=== PATIENT | female | born 1935 | race Caucasian/White ===

== ENCOUNTER 2017-10-22 10:44 | Outpatient (CLI) | payer MEDICARE ==
[2017-10-22 12:13] LABS: Hemoglobin 14.4 g/dL (12.0-16.0); Mean Corpuscular HGB CONC 31.7 g/dL (32.0-36.0); Mean Corpuscular Hemoglobin 30.6 pg (27.0-31.0); Mean Corpuscular Volume 96.6 fl (81.0-99.0); Mean Platelet Volume 7.9 fL (7.4-10.4); Platelet Count 274 thou/uL (130-400); RBC Distribution Width 12.2 % (11.5-14.5); Red Blood Cell (RBC) Count 4.72 mill/uL (4.20-5.40); White Blood Cell (WBC) Count 9.9 thou/uL (4.8-10.8)
[2017-10-22 12:39] LABS: Anion Gap 12 mmol/L (10-20); BUN (Urea Nitrogen) 12 mg/dL (9.8-20.1); Calc. Creatinine Clearance 0 mL/min (70-130); Carbon Dioxide 26 mmol/L (23-31); Chloride 103 mmol/L (98-107); Estimated GFR-MDRD 83; Glucose 82 mg/dL (83-110); Potassium 4.2 mmol/L (3.5-5.1); Sodium 137 mmol/L (136-145)
--- NOTE | 2017-10-22 17:12 | EKG ---
Test Reason : Blood Pressure : / mmHG Vent. Rate : 070 BPM Atrial Rate : 070 BPM P-R Int : 168 ms QRS Dur : 112 ms QT Int : 454 ms P-R-T Axes : 069 -01 056 degrees QTc Int : 490 ms Normal sinus rhythm Possible Anteroseptal infarct , age undetermined First degree AV block Abnormal ECG No previous ECGs available Confirmed by DR. Jesus DELGADO ([id number]) on 10/22/2017 5:11:32 PM Referred By: AYESHA Confirmed By:DR. Jesus DELGADO
== END 2017-10-22 10:45 | disposition home or self-care (01) ==
LOC: LABBT 10:44
PROVIDERS: ATTEND Neurological Surgery
DX: Z01.818 Encounter for other preprocedural examination (principal); M43.16 Spondylolisthesis, lumbar region
CPT/HCPCS: 80048; 85027; 93005; 93010

== ENCOUNTER 2017-10-22 11:15 | Inpatient (IN) | payer MEDICARE ==
[2017-10-22 11:04] VITALS: BMI 20.5
[2017-10-29] MEDS ORDERED: CEFAZOLIN/Water 2 GM/20 ML SYRINGE ONE (07:28)
[2017-10-29] MEDS ORDERED: Sodium Chloride 0.9% 10 ML ONE (09:05)
[2017-10-29] MEDS ORDERED: Fentanyl 250 MCG/5 ML VIAL ONE (09:53)
--- NOTE | 2017-10-29 11:13 | OP ---
DATE OF PROCEDURE: 10/29/2017 SURGEON: Hema Garcia M.D. CHINCHILLA MACHINE OPERATOR: Helena Carlson PA-C PROCEDURE: L4-5 right laminectomy and discectomy, posterolateral arthrodesis, pedicle screw instrume ntation, demineralized bone matrix, L4-5. PROCEDURE IN DETAIL: The patient was brought to the operating room and intubated. She was rolled in the prone position on gel-filled chest rolls. Incision made exposing L4 and L5 bilaterally and our level was confirmed by x-ray. We performed complete L5 and inferior L4 laminectomy and then explored the right L4-5 region and removed some disk material. A complete decompression of the right L4-5 la teral recess was achieved. Next, pedicle screws were placed at right L4, right L5 using lateral fluo roscopic guidance and positioning was confirmed with x-ray. Pradip was secured between the screws, conn ected by nuts which were final tightened. The wound was then extensively irrigated, immaculate hemos tasis was secured. A combination of demineralized bone matrix, local morselized autograft was laid o tea the laminar and posterolateral surfaces for the purpose of arthrodesis. Vancomycin powder was ap plied and the wound was closed in anatomic layers.
[2017-10-29] MEDS ORDERED: diphenhydrAMINE 50 MG/ML VIAL IVP PRN (13:11)
[2017-10-29] MEDS ORDERED: Promethazine HCl 25 MG/ML VIAL IM PRN (13:11)
[2017-10-29] MEDS ORDERED: Mag-Al 1200 mg/1200 mg/30 ML UDCUP PO PRN (13:11)
[2017-10-29] MEDS ORDERED: Promethazine HCl 12.5 MG SUPP PR PRN (13:11)
[2017-10-29] MEDS ORDERED: diphenhydrAMINE 25 MG CAP PO PRN (13:11)
[2017-10-29] MEDS ORDERED: HYDROcodone/Acetaminophen 7.5/325 mg Tablet PO PRN ×2 (13:11)
[2017-10-29] MEDS ORDERED: Promethazine 25 MG TAB PO PRN (13:11)
[2017-10-29] MEDS ORDERED: tiZANidine HCl 4 MG TAB PO PRN (13:11)
[2017-10-29] MEDS ORDERED: Milk Of Magnesia 30 ML UDCUP PO PRN (13:11)
[2017-10-29] MEDS ORDERED: Morphine 2 MG/ML SYRINGE SLOW IVP PRN ×2 (13:12→13:16)
[2017-10-29] MEDS ORDERED: Ondansetron HCl/PF 4 MG/2 ML Vial IM PRN (13:13)
[2017-10-29] MEDS: Sodium Chloride 0.9% 1,000 ML IV SCH (13:39)
--- NOTE | 2017-10-29 14:37 | PDOC.PN ---
- Subjective Encounter Start Date: 10/29/17 Encounter Start Time: 14:36 -: old records requested/rev pt had L4-L5 lumbar laminectomy and microdissectomy, currently doing well, no chest pain, no pain, no dyspnea - Objective MAR Reviewed: Yes Vital Signs & Weight: Vital Signs (12 hours) Temp Pulse Resp BP Pulse Ox 10/29/17 13:00 97.5 F L 77 20 130/60 95 Weight Weight 120 lb Phys Exam - Physical Examination Constitutional: NAD HEENT: PERRLA, moist MMs, sclera anicteric Neck: no JVD, supple Respiratory: no wheezing, no rales, no rhonchi Cardiovascular: RRR, no significant murmur, no rub Gastrointestinal: soft, non-tender, no distention, positive bowel sounds Musculoskeletal: no edema, pulses present Neurological: non-focal, normal sensation Lymphatic: no nodes Psychiatric: normal affect, A&O x 3 Skin: no rash, normal turgor Dx/Plan (1) S/P lumbar laminectomy Code(s): Z98.890 - OTHER SPECIFIED POSTPROCEDURAL STATES Status: Acute (2) Hypertension Code(s): I10 - ESSENTIAL (PRIMARY) HYPERTENSION Status: Chronic (3) Diabetes type 2, controlled Code(s): E11.9 - TYPE 2 DIABETES MELLITUS WITHOUT COMPLICATIONS Status: Chronic (4) Dyslipidemia Code(s): E78.5 - HYPERLIPIDEMIA, UNSPECIFIED Status: Chronic (5) Paroxysmal atrial fibrillation Code(s): I48.0 - PAROXYSMAL ATRIAL FIBRILLATION Status: Chronic (6) Anxiety and depression Code(s): F41.8 - OTHER SPECIFIED ANXIETY DISORDERS Status: Chronic - Plan cont current plan of care, PT/OT, DVT proph w/SCDs * resume home medication * hold antiplatelet for now due to back surgery * continue PT * pain control * medication reviewed as below * symptomatic treatment. Review of Systems - Review of Systems Constitutional: negative: fever, chills, sweats, weakness, malaise, other ENT: negative: Ear Pain, Ear Discharge, Nose Pain, Nose Discharge, Nose Congestion, Mouth Pain, Mouth Swelling, Throat Pain, Throat Swelling, Other Respiratory: negative: Cough, Dry, Shortness of Breath, Hemoptysis, SOB with Excertion, Pleuritic Pain, Sputum, Wheezing Cardiovascular: negative: chest pain, palpitations, orthopnea, paroxysmal nocturnal dyspnea, edema, light headedness, other Gastrointestinal: negative: Nausea, Vomiting, Abdominal Pain, Diarrhea, Constipation, Melena, Hematochezia, Other Genitourinary: negative: Dysuria, Frequency, Incontinence, Hematuria, Retention , Other Musculoskeletal: negative: Neck Pain, Shoulder Pain, Arm Pain, Back Pain, Hand Pain, Leg Pain, Foot Pain, Other Skin: negative: Rash, Lesions, Ovidio, Bruising, Other - Medications/Allergies Allergies/Adverse Reactions: Allergies Allergy/AdvReac Type Severity Reaction Status Date / Time No Known Allergies Allergy Verified 10/22/17 11:05 Medications: Current Medications Hydrocodone Bitart/Acetaminophen ([place] 7.5/325) 1 tab PO Q4H PRN PRN Reason: Pain (1-3) Hydrocodone Bitart/Acetaminophen ([place] 7.5/325) 2 tab PO Q4H PRN PRN Reason: PAIN (4-6) Al Hydroxide/Mg Hydroxide (Maalox) 30 ml PO Q4H PRN PRN Reason: Heartburn or Indigestion Cefazolin Sodium (Ancef) 2 gm SLOW IVP Q8H [facility] Stop: 10/29/17 23:01 Diphenhydramine HCl (Benadryl) 25 mg PO Q6H PRN PRN Reason: Itching Diphenhydramine HCl (Benadryl) 25 mg IVP Q6H PRN PRN Reason: Itching Sodium Chloride (Normal Saline 0.9%) 1,000 mls @ 75 mls/hr IV .[id number] [facility] Last Admin: 10/29/17 13:39 Dose: Not Given Ketorolac Tromethamine (Toradol) 15 mg IVP Q6HR [facility] Stop: 10/31/17 12:01 Magnesium Hydroxide (Milk Of Magnesium) 30 ml PO Q12H PRN PRN Reason: Constipation Morphine Sulfate (Morphine) 4 mg SLOW IVP Q1H PRN PRN Reason: Severe Breakthrough Pain Morphine Sulfate (Morphine) 2 mg SLOW IVP Q1H PRN PRN Reason: Moderate Breakthrough Pain Last Admin: 10/29/17 13:38 Dose: 2 mg Ondansetron HCl (Zofran) 4 mg IM Q6H PRN PRN Reason: Nausea/Vomiting Promethazine HCl (Phenergan) 12.5 mg IM Q4H PRN PRN Reason: Nausea/Vomiting Promethazine HCl (Phenergan) 12.5 mg PO Q4H PRN PRN Reason: Nausea/Vomiting Promethazine HCl (Phenergan Suppository) 12.5 mg [place] Q4H PRN PRN Reason: Nausea/Vomiting Sodium Chloride (Flush - Normal Saline) 10 ml IVF Q12HR [facility]ONAH Sodium Chloride (Flush - Normal Saline) 10 ml IVF PRN PRN PRN Reason: Saline Flush Tizanidine HCl (Zanaflex) 4 mg PO Q6H PRN PRN Reason: MUSCLE SPASM History of Present Illnes - History of Present Illness Reason for Visit: admitted for lumbar laminectomy History of Present Illness: s/p surgery this morning, no weakness, no pain, doing well, no porblem so far - Past Medical History Cardiac: AFIB, HTN, Hyperlipidemia Gastrointestinal: Diverticulosis Psych: Anxiety, Depression Musculoskeletal: Chronic low back pain - Past Surgical History Past Surgical History: Cataract Removal (laminectomy-lumbar) - Past Family History Family History: None - Past Social History Smoke: No Alcohol: None Drugs: None Lives: With Family Domestic Violence: Negative
[2017-10-29] MEDS ORDERED: Dextrose 5% in Water 1,000 ML IV PRN (14:42)
[2017-10-29] MEDS ORDERED: HumaLOG 300 UNITS/3 ML VIAL SC PRN ×2 (14:42)
[2017-10-29] MEDS ORDERED: Dextrose 50% Abboject 50 ML SYRINGE SLOW IVP PRN (14:42)
[2017-10-29] MEDS ORDERED: ALPRAZolam 0.25 MG TAB PO PRN (14:42)
[2017-10-29] MEDS ORDERED: Eucerin (Mineral Oil/Petrolatum,White) 30 gm Jar TOP PRN (14:46)
[2017-10-29] MEDS ORDERED: hydrALAZINE 20 MG/ML VIAL SLOW IVP PRN (14:46)
[2017-10-29] MEDS ORDERED: Chloraseptic Spray 180 ml Bottle PO PRN (14:46)
[2017-10-29] MEDS ORDERED: Diabetic Tussin 200 MG/10 ML UDCUP PO PRN (14:46)
[2017-10-29] MEDS ORDERED: Senokot 8.6 MG TAB PO PRN (14:46)
[2017-10-29] MEDS ORDERED: Acetaminophen 325 MG TAB PO PRN (14:46)
[2017-10-29] MEDS ORDERED: Zolpidem Tartrate 5 MG TAB PO PRN (14:46)
[2017-10-29] MEDS ORDERED: CEFAZOLIN/Water 2 GM/20 ML SYRINGE SLOW IVP SCH (15:00)
[2017-10-29] MEDS ORDERED: Ondansetron HCl/PF 4 MG/2 ML Vial ONE (17:21)
[2017-10-29] MEDS ORDERED: Glycopyrrolate 0.2 MG/ML 5 ML SYRINGE ONE (17:21)
[2017-10-29] MEDS ORDERED: Ketorolac Tromethamine 30 MG/ML VIAL ONE (17:21)
[2017-10-29] MEDS ORDERED: PHENYLEPHRINE-NS 100 MCG/ML 10 ML SYRINGE ONE (17:21)
[2017-10-29] MEDS ORDERED: Dexamethasone 20 MG/5 ML VIAL ONE (17:21)
[2017-10-29] MEDS ORDERED: ePHEDrine/0.9% NaCl/PF SYRINGE 50 mg/10 ml ONE (17:21)
[2017-10-29] MEDS ORDERED: Lidocaine 1% PF 5 ML VIAL ONE (17:21)
[2017-10-29] MEDS ORDERED: PROPOFOL 200 MG/20 ML VIAL ONE (17:21)
[2017-10-29] MEDS: Ketorolac Tromethamine 30 MG/ML VIAL IVP SCH (18:30)
[2017-10-29] MEDS: CEFAZOLIN/Water 2 GM/20 ML SYRINGE SLOW IVP SCH (20:21)
[2017-10-29] MEDS ORDERED: Ezetimibe 10 MG TAB PO SCH (21:00)
[2017-10-29] MEDS ORDERED: Lisinopril 5 MG TAB PO SCH (21:00)
[2017-10-29] MEDS: Famotidine 20 MG TAB PO SCH (21:45)
[2017-10-29] MEDS: metFORMIN 500 MG TAB PO SCH (21:45)
[2017-10-29] MEDS: Flecainide 50 MG TAB PO SCH (21:45)
[2017-10-29] MEDS: Metoprolol Tartrate 50 MG TAB PO SCH (21:47)
[2017-10-30] MEDS: Ketorolac Tromethamine 30 MG/ML VIAL IVP SCH ×3 (00:39→12:00)
[2017-10-30] MEDS: CEFAZOLIN/Water 2 GM/20 ML SYRINGE SLOW IVP SCH (02:50)
[2017-10-30] MEDS: Sodium Chloride 0.9% 1,000 ML IV SCH ×2 (02:51→12:00)
--- NOTE | 2017-10-30 10:25 | DIS ---
DATE OF ADMISSION: 10/29/2017 DATE OF DISCHARGE: 10/30/2017 PRIMARY CARE PHYSICIAN: No Marquez M.D. DISCHARGE DISPOSITION: L4-L5 decompression and fusion. SECONDARY DISCHARGE DIAGNOSES: Anxiety, depression, diabetes type 2, dyslipidemia, hypertension, and paroxysmal atrial fibrillation. PRIMARY PROCEDURE/OPERATION: Lumbar laminectomy. RADIOLOGICAL INVESTIGATION: None. SIGNIFICANT LABORATORY DATA: Accu-Chek 157, 146 105. DISCHARGE MEDICATIONS: Zanaflex 4 mg q.6 hourly p.r.n., [place] 10 one 1-2 tablets q.6 hourly p.r.n., Keflex 500 mg q.6 hourly for 10 days, biotin 2500 mcg p.o. daily, Align 4 mg p.o. daily, Xanax 0.25 m g as per home dosage, Lopressor 75 mg p.o. b.i.d., metformin 500 mg p.o. b.i.d., lisinopril 5 mg p.o. daily, flecainide 100 mg p.o. b.i.d., Zetia 10 mg p.o. daily, vitamin D3 1000 unit p.o. daily. CONTRAINDICATIONS: The patient is currently not on aspirin because of back surgery, but that medicat ion can be started when neurosurgeon okay. CODE STATUS: FULL CODE. INPATIENT PROPRIETARY TRADER: Dr. Garcia with primary [facility] team was consulted for medical comanagement. TEST RESULTS PENDING ON DISCHARGE: None. ALLERGIES: No known drug allergy. DISCHARGE PLAN: Post hospital, patient will follow up with Dr. Alma Sarabia as instructed as well as primary care physician, Dr. Garcia. HOSPITAL COURSE: An 82-year-old female who was electively admitted for lumbar laminectomy by Dr. Rodney castro. The patient underwent L4-L5 right laminectomy and vasectomy. Postoperatively, Sound Team was consulted for medical comanagement. Patient's medical problem remains stable. We resumed all her h ome medication while in hospital as well as on discharge. Patient was not on aspirin because of back surgery, but that medication will be started when primary team is okay. The patient is given prescr iption for Keflex, [place] and Zanaflex by primary team. Overall, this patient is medically stable for discharge today. [facility]. PHYSICAL EXAMINATION: VITAL SIGNS: Currently, temperature 98.2, pulse 75, respiratory rate 16, saturation 100% on room air , blood pressure 128/60. Weight 120 pounds. GENERAL: The patient is currently alert, awake, no acute distress. HEAD: Normocephalic, atraumatic. EYES: Pupils round and reactive to light. Extraocular muscle intact. ENT: Oropharynx within normal limits. Moist mucous membranes, no oral lesion, no pharyngeal erythem a, no exudate. NECK: Supple, no JVD, no thyromegaly, no carotid bruit. No jugular venous distention. LUNGS: Clear to auscultation without any rhonchi or rales. CARDIAC: S1 and S2 regular without any murmur. ABDOMEN: Soft and benign without any tenderness. EXTREMITIES: No edema. NEUROLOGIC: Nonfocal examination. Overall, this patient is medically stable for discharge today. All review of system reviewed with he r negative and we will sign off today.
[2017-10-30] MEDS: Famotidine 20 MG TAB PO SCH (10:47)
[2017-10-30] MEDS: metFORMIN 500 MG TAB PO SCH (10:47)
[2017-10-30] MEDS: Flecainide 50 MG TAB PO SCH (11:02)
[2017-10-30] MEDS: Metoprolol Tartrate 50 MG TAB PO SCH (11:05)
--- NOTE | 2017-10-30 12:03 | PDOC.PN ---
- Subjective Encounter Start Date: 10/30/17 Encounter Start Time: 10:00 Patient seen and examined. No new complaints. No overnight events - Objective Resuscitation Status: Resuscitation Status FULL:Full Resuscitation MAR Reviewed: Yes Vital Signs & Weight: Vital Signs (12 hours) Temp Pulse Resp BP Pulse Ox 10/30/17 08:00 98.2 F 75 16 10/30/17 05:34 98.2 F 75 16 128/60 10/30/17 00:22 97.7 F 75 16 133/75 94 L Weight Weight 120 lb I&O: 10/29/17 10/30/17 10/31/17 06:59 06:59 06:59 Intake Total 1450 Balance 1450 Additional Labs: Accuchecks 10/30/17 10/29/17 10/29/17 04:16 21:30 16:40 POC Glucose 105 146 H 157 H Phys Exam - Physical Examination Constitutional: NAD HEENT: PERRLA, moist MMs, sclera anicteric Neck: no JVD, supple Respiratory: no wheezing, no rales, no rhonchi Cardiovascular: RRR, no significant murmur, no rub Gastrointestinal: soft, non-tender, no distention, positive bowel sounds Musculoskeletal: no edema, pulses present Neurological: non-focal, normal sensation, moves all 4 limbs Psychiatric: normal affect, A&O x 3 Skin: no rash, normal turgor Dx/Plan (1) S/P lumbar laminectomy Code(s): Z98.890 - OTHER SPECIFIED POSTPROCEDURAL STATES Status: Acute (2) Hypertension Code(s): I10 - ESSENTIAL (PRIMARY) HYPERTENSION Status: Chronic (3) Diabetes type 2, controlled Code(s): E11.9 - TYPE 2 DIABETES MELLITUS WITHOUT COMPLICATIONS Status: Chronic (4) Dyslipidemia Code(s): E78.5 - HYPERLIPIDEMIA, UNSPECIFIED Status: Chronic (5) Paroxysmal atrial fibrillation Code(s): I48.0 - PAROXYSMAL ATRIAL FIBRILLATION Status: Chronic (6) Anxiety and depression Code(s): F41.8 - OTHER SPECIFIED ANXIETY DISORDERS Status: Chronic - Plan cont current plan of care * medication reviewed as below * symptomatic treatment * see discharge summery. Review of Systems - Review of Systems ENT: negative: Ear Pain, Ear Discharge, Nose Pain, Nose Discharge, Nose Congestion, Mouth Pain, Mouth Swelling, Throat Pain, Throat Swelling, Other Respiratory: negative: Cough, Dry, Shortness of Breath, Hemoptysis, SOB with Excertion, Pleuritic Pain, Sputum, Wheezing Cardiovascular: negative: chest pain, palpitations, orthopnea, paroxysmal nocturnal dyspnea, edema, light headedness, other Gastrointestinal: negative: Nausea, Vomiting, Abdominal Pain, Diarrhea, Constipation, Melena, Hematochezia, Other Genitourinary: negative: Dysuria, Frequency, Incontinence, Hematuria, Retention , Other Musculoskeletal: negative: Neck Pain, Shoulder Pain, Arm Pain, Back Pain, Hand Pain, Leg Pain, Foot Pain, Other Skin: negative: Rash, Lesions, Ovidio, Bruising, Other - Medications/Allergies Allergies/Adverse Reactions: Allergies Allergy/AdvReac Type Severity Reaction Status Date / Time No Known Allergies Allergy Verified 10/22/17 11:05 Medications: Current Medications Acetaminophen (Tylenol) 650 mg PO Q4H PRN PRN Reason: Headache/Fever or Mild Pain Hydrocodone Bitart/Acetaminophen ([place] 7.5/325) 1 tab PO Q4H PRN PRN Reason: Pain (1-3) Hydrocodone Bitart/Acetaminophen ([place] 7.5/325) 2 tab PO Q4H PRN PRN Reason: PAIN (4-6) Al Hydroxide/Mg Hydroxide (Maalox) 30 ml PO Q4H PRN PRN Reason: Heartburn or Indigestion Alprazolam (Xanax) 0.25 mg PO QIDPRN PRN PRN Reason: Anxiety/Restlessness/Sleep Last Admin: 10/30/17 00:39 Dose: 0.25 mg Cholecalciferol (Vitamin D3) 1,000 units PO QAM [facility] Last Admin: 10/30/17 10:47 Dose: 1,000 units Dextrose/Water (Dextrose 50%) 25 gm SLOW IVP PRN PRN PRN Reason: Hypoglycemia Diphenhydramine HCl (Benadryl) 25 mg PO Q6H PRN PRN Reason: Itching Diphenhydramine HCl (Benadryl) 25 mg IVP Q6H PRN PRN Reason: Itching Ezetimibe (Zetia) 10 mg PO QPM [facility] Last Admin: 10/29/17 21:46 Dose: 10 mg Famotidine (Pepcid) 20 mg PO BID [facility] Last Admin: 10/30/17 10:47 Dose: 20 mg Flecainide Acetate (Tambocor) 100 mg PO BID [facility] Last Admin: 10/30/17 11:02 Dose: 100 mg Glucagon (Glucagon) 1 mg IM PRN PRN PRN Reason: Hypoglycemia Guaifenesin (Robitussin Sf) 200 mg PO Q4H PRN PRN Reason: Cough Hydralazine HCl (Apresoline) 10 mg SLOW IVP Q4H PRN PRN Reason: Systolic BP > 180 Sodium Chloride (Normal Saline 0.9%) 1,000 mls @ 75 mls/hr IV .[id number] [facility] Last Admin: 10/30/17 12:00 Dose: Not Given Dextrose/Water (D5w) 1,000 mls @ 0 mls/hr IV .Q0M PRN; As Directed PRN Reason: Hypoglycemia Insulin Human Lispro (Humalog) 0 units SC .MODERATE SLIDING SC PRN PRN Reason: Moderate Correctional Scale Insulin Human Lispro (Humalog) 0 units SC .BEDTIME SLIDING SC PRN PRN Reason: Bedtime Correctional Scale Ketorolac Tromethamine (Toradol) 15 mg IVP Q6HR [facility] Stop: 10/31/17 12:01 Last Admin: 10/30/17 12:00 Dose: Not Given Lisinopril (Zestril) 5 mg PO QPM [facility] Last Admin: 10/29/17 21:46 Dose: 5 mg Magnesium Hydroxide (Milk Of Magnesium) 30 ml PO Q12H PRN PRN Reason: Constipation Metformin HCl (Glucophage) 500 mg PO BID [facility] Last Admin: 10/30/17 10:47 Dose: 500 mg Metoprolol Tartrate (Lopressor) 75 mg PO BID [facility] Last Admin: 10/30/17 11:05 Dose: 75 mg Mineral Oil/White Petrolatum (Eucerin Cream) 0 gm TOP BIDPRN PRN PRN Reason: Dry Skin Morphine Sulfate (Morphine) 4 mg SLOW IVP Q1H PRN PRN Reason: Severe Breakthrough Pain Morphine Sulfate (Morphine) 2 mg SLOW IVP Q1H PRN PRN Reason: Moderate Breakthrough Pain Last Admin: 10/29/17 13:38 Dose: 2 mg Ondansetron HCl (Zofran) 4 mg IM Q6H PRN PRN Reason: Nausea/Vomiting Phenol (Chloraseptic [place] 180 Ml Bot) 0 ml PO PRN PRN PRN Reason: Sore Throat Promethazine HCl (Phenergan) 12.5 mg IM Q4H PRN PRN Reason: Nausea/Vomiting Promethazine HCl (Phenergan) 12.5 mg PO Q4H PRN PRN Reason: Nausea/Vomiting Promethazine HCl (Phenergan Suppository) 12.5 mg PA Q4H PRN PRN Reason: Nausea/Vomiting Senna (Senokot) 2 tab PO HSPRN PRN PRN Reason: Constipation Sodium Chloride (Flush - Normal Saline) 10 ml IVF Q12HR [facility] Last Admin: 10/30/17 11:04 Dose: Not Given Sodium Chloride (Flush - Normal Saline) 10 ml IVF PRN PRN PRN Reason: Saline Flush Tizanidine HCl (Zanaflex) 4 mg PO Q6H PRN PRN Reason: MUSCLE SPASM Zolpidem Tartrate (Ambien) 5 mg PO HSPRN PRN PRN Reason: Insomnia
[2017-10-30 13:58] VITALS: BP 124/64; TEMP 97.8
== END 2017-10-30 15:40 | disposition home or self-care (01) | DRG 460 ==
LOC: SURG A 10-29 06:51 → SURG B 10-29 12:41
PROVIDERS: ADMIT Neurological Surgery; ATTEND Neurological Surgery
PROC: 0SG0071 Fusion of Lumbar Vertebral Joint with Autologous Tissue Substitute, Posterior Approach, Posterior Column, Open Approach (ICD-10-PCS; principal; 2017-10-29)
PROC: 0SB20ZZ Excision of Lumbar Vertebral Disc, Open Approach (ICD-10-PCS; 2017-10-29)
DX: M43.16 Spondylolisthesis, lumbar region (principal); I48.0 Paroxysmal atrial fibrillation; M51.06 Intervertebral disc disorders with myelopathy, lumbar region; E11.9 Type 2 diabetes mellitus without complications; I48.91 Unspecified atrial fibrillation; F32.9 Major depressive disorder, single episode, unspecified; E78.5 Hyperlipidemia, unspecified; F41.9 Anxiety disorder, unspecified; I10 Essential (primary) hypertension; M48.061 Spinal stenosis, lumbar region without neurogenic claudication
CPT/HCPCS: 36416; 76001; A4216; C1713; C1768; G8978-GP-CJ; G8979-GP-CI; G8987-GO-CI; G8988-GO-CI; G8989-GO-CI; J0131; J1100; J1885; J2001; J2270; J2405; J2704; J3010; J3370; J3490

== ENCOUNTER 2017-11-13 14:39 | Outpatient (CLI) | payer MEDICARE ==
--- NOTE | 2017-11-13 15:49 | RAD ---
2 VIEWS LUMBAR SPINE: Date: 11/13/17 HISTORY: Postoperative changes of lumbar spine performed approximately 2 weeks ago secondary to low back pain and radicular symptoms. COMPARISON: None available. FINDINGS: There are five non-rib bearing lumbar-type vertebral bodies. There is right convex scoliosis of the l umbar spine centered at the level of the L3 vertebral body. There are postsurgical changes related to posterior fusion at the lumbosacral junction with unilateral right-sided pedicular screws and racing secretary and handicapper ior rods. Laminectomy defect is present at this level. There is Grade I anterolisthesis of L4 on L5. There is slight retrolisthesis of L3 on L4 with trace anterolisthesis of L2 on L3. Mild osteophytes a re seen at multiple levels. There is narrowing of the intervertebral disc spaces in the lower lumbar spine. There are vascular calcifications seen in the abdominal aorta. IMPRESSION: 1. Postsurgical changes related to posterior fusion at the L4-5 level. 2. Trace anterolisthesis of L2 on L3 with trace retrolisthesis of L3 on L4. 3. Degenerative changes lumbar spine with right convex scoliosis. 4. No hardware complication is seen. POS: [facility]
== END 2017-11-13 14:40 | disposition home or self-care (01) ==
LOC: TBSIIMAG 14:39
PROVIDERS: ATTEND Neurological Surgery
DX: M54.9 Dorsalgia, unspecified (principal); M43.16 Spondylolisthesis, lumbar region; M47.896 Other spondylosis, lumbar region; M41.9 Scoliosis, unspecified; Z98.1 Arthrodesis status
CPT/HCPCS: 72040; 72100

== ENCOUNTER 2018-01-01 15:24 | Outpatient (CLI) | payer MEDICARE ==
--- NOTE | 2018-01-01 17:48 | RAD ---
TWO VIEWS LUMBAR SPINE WITH STANDING INCLINE: Date: 01-01-18 History: Follow up. Post-surgical changes. Back surgery 10-29-17. Comparison: 11-21-17 FINDINGS: Post-surgical changes related to posterior fusion at the L4-5 level are again seen with unilateral ri ght sided pedicular screw and posterior rods transfixing this level. Laminectomy defect is present. T here is stable grade I anterolisthesis of L4 on L5. Vertebral body heights are within normal limits. There is mild narrowing of the L5-S1 intervertebral disc space. The trace anterolisthesis of L2 and L3 is not appreciated on this exam but was noted on p rior study. IMPRESSION: 1. Post-surgical changes related to posterior fusion at the L4-5 level. No hardware complication is s een. 2. Stable right convex scoliosis lumbar spine. POS: [facility]
== END 2018-01-01 15:25 | disposition home or self-care (01) ==
LOC: TBSIIMAG 15:24
PROVIDERS: ATTEND Neurological Surgery
DX: M48.061 Spinal stenosis, lumbar region without neurogenic claudication (principal); M41.9 Scoliosis, unspecified; Z98.1 Arthrodesis status
CPT/HCPCS: 72100

== ENCOUNTER 2018-09-18 08:59 | Outpatient (CLI) | payer MEDICARE ==
--- NOTE | 2018-09-18 15:17 | NM ---
NUCLEAR MEDICINE BRAIN IMAGING: Date: 09/18/18 HISTORY: Unspecified abnormalities of gait and mobility. TECHNIQUE: A DaTscan with axial tomographic images of the brain was performed 3 hours following the intravenous administration of 4.7 mCi iodine-123 Ioflupane. The patient was pretreated with 130 mg of potassium i odide 1 hour prior to the injection. FINDINGS: There is symmetric uptake in the striata bilaterally, demonstrating symmetric, crescent-shaped focal regions of activity mirrored about the median plane. IMPRESSION: Normal exam. POS: [facility]
== END 2018-09-18 09:00 | disposition home or self-care (01) ==
LOC: NM 08:59
PROVIDERS: ATTEND Nurse Practitioner Acute Care
DX: R26.9 Unspecified abnormalities of gait and mobility (principal)
CPT/HCPCS: 78607; A9584

== ENCOUNTER 2019-01-07 08:28 | Outpatient (CLI) | payer MEDICARE ==
[2019-01-07] MEDS ORDERED: Gadobenate Dimeglumine 529 MG/1 ML (20ML VIAL) ONE (08:46)
--- NOTE | 2019-01-07 10:26 | RAD ---
LUMBAR SPINE FOUR VIEWS: HISTORY: M48.062, lumbar stenosis with claudication. COMPARISON: Lumbar spine radiographs from 01/01/2018. FINDINGS: Similar appearance of the right unilateral L4-L5 posterior spinal fusion hardware. The anterolisthes is of L4 over L5 is similar. Moderate degenerative disk space height loss at L3-L4 and L5-S1. Minimal retrolisthesis of L3 over L 4 without translation with flexion or extension. Moderate degenerative change of the SI joints. Dense calcification of the pelvis, likely a uterine f ibroid. No acute superimposed fracture or malalignment. IMPRESSION: Similar post surgical changes. No translation with flexion or extension. POS: [facility]
--- NOTE | 2019-01-07 10:34 | MRI ---
MRI Cervical spine without contrast: HISTORY: Cervical spondylosis with myelopathy. COMPARISON: 05/15/2017 FINDINGS: The craniocervical junction is unremarkable. No significant cord signal abnormality. Paravertebral soft tissues have a normal appearance and normal signal intensity. There is mild nonspecific heterogeneity of the bone marrow similar to prior study. C1-2:There are mild degenerative changes seen at the articulation of the odontoid with anterior arch of C1 similar to prior exam. C2-3: Facet degenerative changes are again seen on the left with associated uncinate process hypertro phy which again results in moderate left-sided neural foraminal narrowing. The central spinal canal and neural foramina are patent. C3-4: There is loss of intervertebral disc height. Broad-based disc osteophyte complex is again seen with facet hypertrophic changes also again noted. Mild narrowing the central spinal canal is present with moderate bilateral neural foraminal narrowing present. C4-5: Again noted is loss of intervertebral disc height. Broad-based disc osteophyte complex is again present similar to prior study, and there is narrowing of the ventral subarachnoid space with slight flattening the anterior aspect of the spinal cord. There is moderate right and moderate to sev ere left-sided neural foraminal narrowing. C5-6: A mild broad-based disc osteophyte complex is again seen slightly narrowing the ventral subarac hnoid space. There is mild left-sided neural foraminal narrowing. Right neural foramen is again patent. Slight effacement of ventral subarachnoid space. There is no interval change from prior exam. C6-7: There is a broad-based disc osteophyte complex. There has been interval increase in the central disc extrusion when compared to the prior exam which contacts and results in deformity of the anterior aspect of the spinal cord. However, there is normal signal intensity in the spinal cord at t his level. The right neural foramen is patent. There is mild left-sided neural foraminal narrowing present. A tiny increased T2-weighted signal intensity focus is seen in the left neural foramen likel y related to small dilated nerve root sleeve. C7-T1: There is mild disc osteophyte complex present. Previously noted central disc protrusion has im proved from the prior exam. There is no significant central spinal canal narrowing. The neural foramina are patent. There is a subcentimeter increased T2-weighted signal intensity focus in the lef t neural foramen likely due to small dilated nerve root sleeve. IMPRESSION: 1. Multilevel degenerative changes throughout the cervical spine majority of which are overall stable compared to the prior exam, but there has been interval increase in size of the central disc protrusion at the C6-7 level with greater degree of mass effect on the central aspect of the spinal c ord when compared to the prior exam. The AP dimension of this disc protrusion measures approximately 5 mm.
--- NOTE | 2019-01-07 11:14 | MRI ---
MRI Lumbar Spine with and without IV contrast: HISTORY: Lumbar stenosis with claudication. Patient claims low back pain with sciatic type pain to left hip. COMPARISON: Noncontrast MRI lumbar spine on 05/15/2017 FINDINGS: The visualized retroperitoneal structures demonstrate a normal appearance. Conus medullaris is normal in morphology and terminates at the L2 level. There is mild heterogeneity of the bone marrow. There has been interval postsurgical changes at the L 4-5 level with right-sided metallic susceptibility artifact related to right-sided pedicular screws and posterior malik. L1-2: There is no disc bulge or disc herniation. Central spinal canal and neural foramina are patent. L2-3: There is a mild broad-based disc osteophyte complex similar to prior exam. This does result in slight effacement of the ventral aspect of the thecal sac without significant central canal narrowing. The neural foramina are patent. Mild facet degenerative changes are present. L3-4: Again, there is loss of intervertebral disc height. A broad-based disc osteophyte complex is pr esent. Mild facet degenerative changes and ligamentous thickening are present. There is mild generalized narrowing of the central spinal canal. Mild bilateral neural foraminal narrowing is prese nt L4-5: There is slight grade 1 anterolisthesis of L4 on L5 with interval postsurgical changes as descr ibed above related to unilateral right-sided posterior fusion hardware. Mild disc osteophyte complex is present, and this does result in effacement of the ventral aspect of thecal sac. Degree of central canal narrowing has improved when compared to prior exam. Mild bilateral neural foraminal narrowing is present. L5-S1: Again, there is loss of intervertebral disc height. Broad-based disc osteophyte complex is pre sent. There is no significant narrowing of the central spinal canal. Facet degenerative changes are present at this level. There is partial obscuration of the right neural foramen due to metallic susce ptibility artifact, but there is at least mild narrowing of the neural foramina bilaterally. There is atrophy of the paraspinous musculature similar to prior exam. No abnormal enhancement is seen after the administration of intravenous contrast. IMPRESSION: 1. Multilevel degenerative changes in the cervical spine overall similar to the prior exam. There has been interval postsurgical change related to posterior fusion at the L4-5 level. There is persistent trace anterolisthesis of L4 on L5, but the degree of central canal narrowing at this level has improved.
== END 2019-01-07 08:29 | disposition home or self-care (01) ==
LOC: TBSIIMAG 08:28
PROVIDERS: ATTEND Neurological Surgery
DX: M47.12 Other spondylosis with myelopathy, cervical region (principal); M48.062 Spinal stenosis, lumbar region with neurogenic claudication; M43.16 Spondylolisthesis, lumbar region; M48.061 Spinal stenosis, lumbar region without neurogenic claudication; M50.00 Cervical disc disorder with myelopathy, unspecified cervical region; Z98.890 Other specified postprocedural states
CPT/HCPCS: 72110; 72141; 72158; 82565; A9577

== ENCOUNTER 2019-12-01 12:46 | Emergency (ER) | payer MEDICARE ==
[2019-12-01] MEDS ORDERED: Iopamidol-370 76% 500 ML 1 ML ONE (13:01)
[2019-12-01 13:56] LABS: Hemoglobin 13.8 g/dL (12.0-16.0); Mean Corpuscular HGB CONC 33.2 g/dL (32.0-36.0); Mean Corpuscular Hemoglobin 30.7 pg (27.0-31.0); Mean Corpuscular Volume 92.5 fL (78.0-98.0); Mean Platelet Volume 6.9 fL (7.4-10.4); Platelet Count 302 thou/uL (130-400); Red Blood Cell (RBC) Count 4.49 mill/uL (4.20-5.40); White Blood Cell (WBC) Count 17.1 thou/uL (4.8-10.8)
[2019-12-01 14:14] LABS: ALT (SGPT) 7 U/L (8-55); AST (SGOT) 13 U/L (5-34); Albumin 3.7 g/dL (3.4-4.8); Alkaline Phosphatase 50 U/L (40-110); Anion Gap 17 mmol/L (10-20); BUN (Urea Nitrogen) 11 mg/dL (9.8-20.1); Band 4 % (5-11); Bilirubin, Total 0.4 mg/dL (0.2-1.2); Calc. Creatinine Clearance 0 mL/min (70-130); Calcium 9.2 mg/dL (7.8-10.44); Carbon Dioxide 20 mmol/L (23-31); Chloride 104 mmol/L (98-107); Eosinophils 2 % (0-10); Estimated GFR-MDRD 80; Globulin 3.3 g/dL (2.4-3.5); Glucose 107 mg/dL (83-110); Lymphocytes 4 % (21-51); MDiff Complete? YES; Monocytes 3 % (0-10); Neutrophil 86 % (42-75); Platelet Morphology Comment Appears Adequate; Potassium 4.3 mmol/L (3.5-5.1); RBC Morphology Normal; Sodium 137 mmol/L (136-145)
--- NOTE | 2019-12-01 15:12 | CT ---
CT ABDOMEN AND PELVIS WITH IV CONTRAST: Date: 12/01/2019 INDICATION: Rectal bleeding. Diarrhea. Abdominal cramping. No comparison studies. FINDINGS: Lung bases show chronic parenchymal changes with evidence of early emphysematous change. Liver, spleen, and pancreas unremarkable. Stomach and duodenum unremarkable. Adrenal glands normal. Kidneys unremarkable. Small bowel loops appear normal. Review of the colon reveals abnormal mural thickening and surrounding inflammatory change involving t he left colon extending into the proximal sigmoid colon. Colitis would be suspected. Recommend colono scopy. The aorta shows calcification. No aneurysm. Nonspecific periaortic lymph nodes. Images through the pelvis show heterogeneous uterus with a large calcified fibroid in the uterine fun dus which measures up to 3.0 cm. Osseous structures show degenerative changes in the spine with postoperative changes in the lumbar sp ine. IMPRESSION: 1. Mural thickening and luminal narrowing with surrounding inflammation involving the left colon and upper sigmoid colon consistent with colitis. Portions of the transverse colon are also involved thro ugh the splenic flexure. Recommend GI consultation and consider colonoscopy. 2. Fibroid uterus as described. POS: LUDIVINA
== END 2019-12-01 18:09 | disposition home or self-care (01) ==
LOC: ERS 12:46
DX: K52.9 Noninfective gastroenteritis and colitis, unspecified (principal); E11.9 Type 2 diabetes mellitus without complications; I10 Essential (primary) hypertension; E78.00 Pure hypercholesterolemia, unspecified; F41.9 Anxiety disorder, unspecified; Z79.899 Other long term (current) drug therapy; Z79.82 Long term (current) use of aspirin
CPT/HCPCS: 36415; 74177; 80053; 82274; 85025; 86850; 86900; 86901; Q9967

== ENCOUNTER 2019-12-25 12:02 | Outpatient (CLI) | payer MEDICARE ==
--- NOTE | 2019-12-25 12:59 | RAD ---
EXAM: XR Lumbar Spine Bending Min 4V PROVIDED CLINICAL HISTORY: Low back pain and radiculopathy. COMPARISON: 01/07/2019 FINDINGS: Postoperative changes related to posterior fusion at the L4-5 level are again noted with unilateral r ight-sided pedicular screws transfixed by posterior malik. Laminectomy defect is present at this level. Stable mild grade 1 anterolisthesis of L4 on L5 is seen. Minimal perihardware lucency is seen involving the right L4 pedicular screw not significantly changed from prior exam. Vertebral body heights are within normal limits. Scattered osteophytes are present. Narrowing of the intervertebral disc spaces at the L3-4 and L5-S1 levels is present. No abnormal translational motion is seen between the flexion and extension views. Right convex curvature lumbar spine is again present. Coarse calcification is again partially imaged overlying the lower pelvis probably due to calcified u terine fibroid. Vascular calcifications are again seen. IMPRESSION: Stable degenerative and postoperative changes lumbar spine with suggestion of minimal perihardware linnette cency involving the distal portion of the right L4 pedicular screw.
--- NOTE | 2019-12-25 13:54 | MRI ---
MRI LUMBAR SPINE WITH AND WITHOUT CONTRAST: DATE: 12/25/2019 HISTORY: 84-year-old female with lumbar radiculopathy and low back pain COMPARISON: 01/07/2019 TECHNIQUE: Multiple sequences obtained in axial and sagittal planes, pre and post IV injection of gadolinium-bas ed contrast agent. FINDINGS: 5 lumbar-type vertebrae. Vertebral body heights are maintained. Conus medullaris terminates at lower L2. Spinal canal and thecal sac caliber are generous throughout most levels. Atrophy of bilateral posterior paraspinal musculature throughout all levels of lumbar spine and visualized upper sacrum. T12-L1:Essentially normal. L1-2:Essentially normal. L2-3:Disc space maintained. Diffuse disc bulge. No central stenosis or significant neural foraminal s tenosis. L3-4:Disc space narrowing, asymmetrically moderate to severe on the left with prominent left-sided Mo dic type I endplate marrow edema, similar to or slightly worse than previously. Diffuse disc bulge, plus superimposed left paracentral-lateral focal disc herniation that effaces the left side of the th ecal sac (no central enhancement within it). This chronically impinges on left L4 nerve root. Overall mild central spinal canal stenosis. Mild to moderate bilateral neural foraminal stenosis. Rig ht L4 pedicle screw remains. No major interval change. L4-5:Mild grade 1 anterolisthesis of L4 on L5. No high-grade disc space narrowing. Diffuse disc bulge . Midline laminectomy defect. Resection of right ligamentum flavum. Generous caliber of thecal sac. Moderate bilateral facet DJD. Mild to moderate bilateral neural foraminal stenosis. No significant in terval change. Right L4 pedicle screw. L5-S1:Moderate to severe disc space narrowing. Diffuse disc bulge. Generous caliber of spinal canal a nd thecal sac. Perhaps moderate right neural foraminal stenosis. Mild to moderate left neural foraminal stenosis. IMPRESSION: 1. Moderate lumbar spondylosis with multilevel degenerative disc disease and facet osteoarthrosis. 2. Unilateral right pedicle screws at L4 and L5, stabilizing a mild grade 1 spondylolisthesis. 3. At L3-4 there is a left paracentral and left lateral focal disc herniation. 4. At all other levels, spinal canal and thecal sac caliber are generous. 5. There is no severe neural foraminal stenosis at any level. There may be moderate right neural fora aylin stenosis at L5-S1, but the magnetic susceptibility artifact from the hardware makes this determination somewhat difficult. 6. No interval change overall.
== END 2019-12-25 12:03 | disposition home or self-care (01) ==
LOC: TBSIIMAG 12:02
PROVIDERS: ATTEND Neurological Surgery
DX: M51.16 Intervertebral disc disorders with radiculopathy, lumbar region (principal); M54.5 Low back pain; M47.26 Other spondylosis with radiculopathy, lumbar region; M43.16 Spondylolisthesis, lumbar region; Z98.890 Other specified postprocedural states
CPT/HCPCS: 72120; 72158

== ENCOUNTER 2020-02-06 07:25 | Outpatient (CLI) | payer MEDICARE, OTHER ==
[2020-02-06 16:47] LABS: Anion Gap 12 mmol/L (10-20); BUN (Urea Nitrogen) 14 mg/dL (9.8-20.1); Calc. Creatinine Clearance 0 mL/min (70-130); Calcium 9.5 mg/dL (7.8-10.44); Carbon Dioxide 28 mmol/L (23-31); Chloride 104 mmol/L (98-107); Estimated GFR-MDRD 68; Glucose 94 mg/dL (83-110); Potassium 4.7 mmol/L (3.5-5.1); Sodium 139 mmol/L (136-145)
[2020-02-06 16:50] LABS: Hemoglobin 14.3 g/dL (12.0-16.0); Mean Corpuscular HGB CONC 31.7 g/dL (32.0-36.0); Mean Corpuscular Hemoglobin 30.5 pg (27.0-31.0); Mean Corpuscular Volume 96.3 fL (78.0-98.0); Mean Platelet Volume 9.2 fL (7.4-10.4); Platelet Count 226 thou/uL (130-400); RBC Distribution Width 12.8 % (11.5-14.5); Red Blood Cell (RBC) Count 4.68 mill/uL (4.20-5.40); White Blood Cell (WBC) Count 8.5 thou/uL (4.8-10.8)
[2020-02-07 12:15] LABS: SARS-CoV-2 MS2 Positive; SARS-CoV-2 N Gene Negative; SARS-CoV-2 S Gene Negative; SARS-CoV-2 orf1ab Negative
== END 2020-02-06 07:26 | disposition home or self-care (01) ==
LOC: LABBT 07:25
PROVIDERS: ATTEND Neurological Surgery
DX: Z01.812 Encounter for preprocedural laboratory examination (principal); Z11.59 Encounter for screening for other viral diseases; M54.16 Radiculopathy, lumbar region
CPT/HCPCS: 80048; 85027; U0003; 87635; 93005; 93010

== ENCOUNTER 2020-02-11 06:21 | Observation (INO) | payer MEDICARE ==
[2020-02-05 12:16] VITALS: BMI 19.2
[2020-02-11] MEDS ORDERED: Fentanyl 100 MCG/2 ML VIAL ONE ×4 (08:35→11:43)
[2020-02-11] MEDS ORDERED: SUGAMMADEX SODIUM 200 MG/2 ML VIAL ONE (09:16)
--- NOTE | 2020-02-11 09:53 | OP ---
DATE OF PROCEDURE: 02/11/2020 JUNIOR ACCOUNTING CLERK: Helena Carlson PA-C. PROCEDURE PERFORMED: Left L3-L4 microdiskectomy. DESCRIPTION OF PROCEDURE: The patient was brought to the operating room and intubated. She was rolled in a prone position on gel-filled chest rolls. The previous incision was reopened and extended superiorly, and the L3-L4 region was identified and confirmed by x-ray. We exposed the left L3-L4 region, performed the left L3-L4 hemilaminectomy, removed via ligament, identified the left L4 nerve root and beneath this was a bulging disk herniation. We removed the disk herniation and a complete decompression of the left L4 was achieved. The wound was then extensively irrigated and MAC hemostasis was secured. Vancomycin powder was applied and the wound was then closed in anatomic layers. Job ID: [id number]
[2020-02-11] MEDS ORDERED: Promethazine HCl 25 MG/ML VIAL SLOW IVP PRN (10:45)
[2020-02-11] MEDS ORDERED: Ondansetron HCl/PF 4 MG/2 ML Vial IVP PRN (10:45)
[2020-02-11] MEDS ORDERED: Promethazine HCl 25 MG/ML VIAL IM PRN ×2 (10:45→10:57)
[2020-02-11] MEDS ORDERED: Morphine 2 MG/ML SYRINGE SLOW IVP PRN (10:57)
[2020-02-11] MEDS ORDERED: Promethazine 25 MG TAB PO PRN (10:57)
[2020-02-11] MEDS ORDERED: Acetaminophen/Codeine 30-300mg Tablet PO PRN (10:57)
[2020-02-11] MEDS ORDERED: diphenhydrAMINE 25 MG CAP PO PRN (10:57)
[2020-02-11] MEDS ORDERED: Morphine 4 MG/ML VIAL SLOW IVP PRN (10:57)
[2020-02-11] MEDS ORDERED: diphenhydrAMINE 50 MG/ML VIAL IVP PRN (10:57)
[2020-02-11] MEDS ORDERED: Promethazine HCl 12.5 MG SUPP PR PRN (10:57)
[2020-02-11] MEDS ORDERED: Mag-Al 1200 mg/1200 mg/30 ML UDCUP PO PRN (10:57)
[2020-02-11] MEDS ORDERED: tiZANidine HCl 4 MG TAB PO PRN (10:57)
[2020-02-11] MEDS ORDERED: traMADol HCl 50 MG TAB PO PRN ×2 (10:57)
[2020-02-11] MEDS ORDERED: Milk Of Magnesia 30 ML UDCUP PO PRN (10:57)
[2020-02-11] MEDS ORDERED: Ondansetron PF 4 MG/2 ML Vial IM PRN (10:58)
[2020-02-11] MEDS ORDERED: Lidocaine 1% PF 5 ML VIAL ONE (13:09)
[2020-02-11] MEDS ORDERED: Ondansetron PF 4 MG/2 ML Vial ONE (13:09)
[2020-02-11] MEDS ORDERED: PROPOFOL 200 MG/20 ML VIAL ONE (13:09)
[2020-02-11] MEDS ORDERED: Rocuronium Bromide 10 MG/ML (10ML VIAL) ONE (13:09)
[2020-02-11] MEDS ORDERED: ALPRAZolam 1 MG TAB PO PRN (14:06)
--- NOTE | 2020-02-11 14:19 | PDOC.HOSPP ---
- Subjective Encounter Date: 02/11/20 Encounter Time: 14:41 Subjective: pt had lumbar surgery, consulted for medical management - Objective Vital Signs & Weight: Weight Weight 112 lb Hospitalist ROS - Review of Systems Constitutional: denies: fever, chills, sweats, weakness, malaise, other ENT: denies: ear pain, ear discharge, nose pain, nose discharge, nose congestion , mouth pain, mouth swelling, throat pain, throat swelling, other Respiratory: denies: cough, dry, shortness of breath, hemoptysis, SOB with excertion, pleuritic pain, sputum, wheezing, other Cardiovascular: denies: chest pain, palpitations, orthopnea, paroxysmal noc. dyspnea, edema, light headedness, other Gastrointestinal: denies: nausea, vomiting, abdominal pain, diarrhea, constipation, melena, hematochezia, other Genitourinary: denies: dysuria, frequency, incontinence, hematuria, retention, other Musculoskeletal: denies: neck pain, shoulder pain, arm pain, back pain, hand pain, leg pain, foot pain, other Skin: denies: rash, lesions, shona, bruising, other - Exam General Appearance: NAD, awake alert Eye: PERRL, anicteric sclera ENT: normocephalic atraumatic, no oropharyngeal lesions Neck: supple, symmetric, no JVD, no thyromegaly Heart: RRR, no murmur, no gallops, no rubs Respiratory: CTAB, no wheezes, no rales Gastrointestinal: soft, non-tender, non-distended, normal bowel sounds Extremities: no cyanosis, no clubbing Skin: normal turgor, no lesions Neurological: cranial nerve grossly intact, no focal deficits Musculoskeletal: normal tone, normal strength Psychiatric: normal affect, normal behavior Hosp A/P (1) S/P lumbar laminectomy Code(s): Z98.890 - OTHER SPECIFIED POSTPROCEDURAL STATES Status: Acute (2) Anxiety and depression Code(s): F41.8 - OTHER SPECIFIED ANXIETY DISORDERS Status: Chronic (3) Diabetes type 2, controlled Code(s): E11.9 - TYPE 2 DIABETES MELLITUS WITHOUT COMPLICATIONS Status: Chronic (4) Dyslipidemia Code(s): E78.5 - HYPERLIPIDEMIA, UNSPECIFIED Status: Chronic (5) Hypertension Code(s): I10 - ESSENTIAL (PRIMARY) HYPERTENSION Status: Chronic (6) Paroxysmal atrial fibrillation Code(s): I48.0 - PAROXYSMAL ATRIAL FIBRILLATION Status: Chronic - Plan old records reviewed/req, plan discussed w/ family, PT/OT medication reviewed and supportive care stable medically home medication reconciled possible dc tomorrow
[2020-02-11] MEDS: Sodium Chloride 0.9% 1,000 ML IV SCH (15:42)
[2020-02-11] MEDS ORDERED: Lisinopril 5 MG TAB PO SCH (21:00)
[2020-02-11] MEDS ORDERED: Flecainide 50 MG TAB PO SCH (21:00)
[2020-02-11] MEDS ORDERED: Ezetimibe 10 MG TAB PO SCH (21:00)
[2020-02-11] MEDS: Metoprolol Tartrate 50 MG TAB PO SCH (21:24)
[2020-02-11] MEDS: Vit A,C & E/Lutein/Minerals Tablet PO SCH (21:24)
[2020-02-11] MEDS: Gabapentin 100 MG CAP PO SCH (21:25)
[2020-02-12] MEDS: Sodium Chloride 0.9% 1,000 ML IV SCH (00:17)
[2020-02-12] MEDS: Acetaminophen/Codeine 30-300mg Tablet PO PRN ×4 (03:33→17:08)
[2020-02-12] MEDS ORDERED: metFORMIN 500 MG TAB PO SCH (08:00)
--- NOTE | 2020-02-12 08:50 | PRG ---
DATE OF SERVICE: 02/12/2020 The patient is postoperative day #1, status post left L3-L4 microdiskectomy. She has had significant improvement in her left leg pain. She has been mobilizing well in department, is tolerating regular diet and voiding appropriately. On exam this morning, she is awake and alert, in no acute distress. She has free active range of motion of all extremities. No focal motor weakness. Her incision is clean, dry , and intact. Pt doing well. Plan is to transition her to the rehab side of her current living facility. Case management is assisting with this. MOT papers signed. Ready for transition to rehab at any point in time. Job ID: [id number] MTDD
[2020-02-12] MEDS ORDERED: ALIGN 4 MG PO SCH (09:00)
[2020-02-12] MEDS ORDERED: BIOTIN 2500 MCG PO SCH (09:00)
[2020-02-12] MEDS: Vit A,C & E/Lutein/Minerals Tablet PO SCH (09:03)
[2020-02-12] MEDS: Metoprolol Tartrate 50 MG TAB PO SCH (09:03)
[2020-02-12] MEDS: Gabapentin 100 MG CAP PO SCH (09:03)
--- NOTE | 2020-02-12 10:31 | PDOC.HOSPP ---
- Subjective Encounter Date: 02/12/20 Encounter Time: 09:30 Subjective: Patient seen and examined. No new complaints. No overnight events - Objective Vital Signs & Weight: Vital Signs (12 hours) Temp Pulse Resp BP Pulse Ox 02/12/20 07:46 97.9 F 79 18 146/67 H 98 02/12/20 03:30 98.4 F 79 16 154/71 H 98 02/11/20 23:49 98.2 F 79 16 149/77 H 95 Weight Weight 112 lb I&O: 02/11/20 02/12/20 02/13/20 06:59 06:59 06:59 Intake Total 1260 Balance 1260 Hospitalist ROS - Review of Systems ENT: denies: ear pain, ear discharge, nose pain, nose discharge, nose congestion , mouth pain, mouth swelling, throat pain, throat swelling, other Respiratory: denies: cough, dry, shortness of breath, hemoptysis, SOB with excertion, pleuritic pain, sputum, wheezing, other Cardiovascular: denies: chest pain, palpitations, orthopnea, paroxysmal noc. dyspnea, edema, light headedness, other Gastrointestinal: denies: nausea, vomiting, abdominal pain, diarrhea, constipation, melena, hematochezia, other Genitourinary: denies: dysuria, frequency, incontinence, hematuria, retention, other Musculoskeletal: denies: neck pain, shoulder pain, arm pain, back pain, hand pain, leg pain, foot pain, other - Medication Medications: Active Medications Generic Name Dose Route Start Last Admin Trade Name Freq PRN Reason Stop Dose Admin Acetaminophen/Codeine Phosphate 1 tab 02/11/20 10:57 02/12/20 09:09 Tylenol #3 PO 1 tab Q3H PRN Administration PAIN (1-3) Acetaminophen/Codeine Phosphate 2 tab 02/11/20 10:57 02/11/20 21:26 Tylenol #3 PO 1 tab Q3H PRN Administration PAIN (4-6) Ezetimibe 10 mg 02/11/20 21:00 02/11/20 21:25 Zetia PO 10 mg QPM JONAH Administration Flecainide Acetate 100 mg 02/11/20 21:00 02/11/20 21:24 Tambocor PO 100 mg HS JONAH Administration Gabapentin 100 mg 02/11/20 21:00 02/12/20 09:03 Neurontin PO 100 mg BID JONAH Administration Sodium Chloride 1,000 mls @ 75 mls/hr 02/11/20 10:57 02/12/20 00:17 Normal Saline 0.9% IV Not Given .[id number] JONAH Lisinopril 5 mg 02/11/20 21:00 02/11/20 21:25 Zestril PO 5 mg QPM JONAH Administration Metformin HCl 500 mg 02/12/20 08:00 02/12/20 09:03 Glucophage PO 500 mg QAM-WM JONAH Administration Metoprolol Tartrate 75 mg 02/11/20 21:00 02/12/20 09:03 Lopressor PO 75 mg BID JONAH Administration Multivitamins/Minerals 1 tab 02/11/20 21:00 02/12/20 09:03 Ocuvite With Lutein PO 1 tab BID JONAH Administration Sodium Chloride 10 ml 02/11/20 21:00 02/12/20 09:15 Flush - Normal Saline IVF 10 ml Q12HR JONAH Administration Tramadol HCl 50 mg 02/11/20 10:57 02/11/20 15:40 Ultram PO 50 mg Q6H PRN Administration PAIN (1-3) - Exam General Appearance: NAD, awake alert Eye: PERRL, anicteric sclera ENT: normocephalic atraumatic, no oropharyngeal lesions Neck: supple, symmetric, no JVD, no thyromegaly Heart: RRR, no murmur, no gallops, no rubs Respiratory: CTAB, no wheezes, no rales, no ronchi Gastrointestinal: soft, non-tender, non-distended, normal bowel sounds Extremities: no cyanosis, no clubbing, no edema Skin: normal turgor, no lesions Neurological: no focal deficits Musculoskeletal: normal tone, normal strength Psychiatric: normal affect, normal behavior Hosp A/P (1) S/P lumbar laminectomy Code(s): Z98.890 - OTHER SPECIFIED POSTPROCEDURAL STATES Status: Acute (2) Anxiety and depression Code(s): F41.8 - OTHER SPECIFIED ANXIETY DISORDERS Status: Chronic (3) Diabetes type 2, controlled Code(s): E11.9 - TYPE 2 DIABETES MELLITUS WITHOUT COMPLICATIONS Status: Chronic (4) Dyslipidemia Code(s): E78.5 - HYPERLIPIDEMIA, UNSPECIFIED Status: Chronic (5) Hypertension Code(s): I10 - ESSENTIAL (PRIMARY) HYPERTENSION Status: Chronic (6) Paroxysmal atrial fibrillation Code(s): I48.0 - PAROXYSMAL ATRIAL FIBRILLATION Status: Chronic - Plan old records reviewed/req, PT/OT, social professionals medication reviewed and supportive care stable medically home medication reconciled possible dc tomorrow 02/12/20 post operatively doing well medically stable OK to Dc with her previous medication ? home health
[2020-02-12 15:42] VITALS: BP 115/67; TEMP 97.9
--- NOTE | 2020-02-13 05:42 | DIS ---
DATE OF ADMISSION: 02/11/2020 DATE OF DISCHARGE: 02/12/2020 DISCHARGE SUMMARY/SIGN-OUT NOTE This patient was electively admitted by Neurosurgery for lumbar laminectomy. The patient underwent left L3-L4 microdiskectomy. Postoperatively, medical team was consulted for medical management. The patient remained medically stable. While in hospital, we continued all her previous medications and she will continue similar medications upon discharge as per previous. The patient will be discharged later on today as per primary team, and we will sign off. Job ID: [id number]
--- NOTE | 2020-02-14 03:14 | DIS ---
DATE OF ADMISSION: 02/11/2020 DATE OF DISCHARGE: 02/12/2020 The patient is an 84-year-old female, recently evaluated in our office for progressive back and left leg pain. She was found to have herniated disk at left L3-L4. She underwent left L3-L4 microdiskectomy on 02/11/2020. Following the surgery, she had significant improvement in her back and left leg pain. She was mobilizing well with the assistance of PT and tolerating a regular diet. She was voiding appropriately. On her exam on postoperative day #1, she was awake, alert, in no acute distress. She has free active range of motion of all extremities. No focal motor weakness. Her incision was clean, dry, and intact. Overall, the patient was doing quite well. Initial plan was to transition her to rehab. However, considering her progress, we decided to send her home with home health services. Daughter was in agreement with this plan. Patient discharged to home with scripts for Tylenol 3 and Zanaflex 6. Job ID: [id number]
== END 2020-02-12 17:25 | disposition home health service (06) ==
LOC: SDC 06:21 → SURG A 10:50
PROVIDERS: ADMIT Neurological Surgery; ATTEND Neurological Surgery
PROC: 0SB20ZZ Excision of Lumbar Vertebral Disc, Open Approach (ICD-10-PCS; principal; 2020-02-11)
PROC: 01NB0ZZ Release Lumbar Nerve, Open Approach (ICD-10-PCS; 2020-02-11)
DX: M51.16 Intervertebral disc disorders with radiculopathy, lumbar region (principal); I10 Essential (primary) hypertension; E11.9 Type 2 diabetes mellitus without complications; I48.0 Paroxysmal atrial fibrillation; E78.2 Mixed hyperlipidemia; R25.1 Tremor, unspecified; F41.8 Other specified anxiety disorders; Z79.84 Long term (current) use of oral hypoglycemic drugs; Z79.899 Other long term (current) drug therapy; Z88.1 Allergy status to other antibiotic agents; Z88.2 Allergy status to sulfonamides; Z88.5 Allergy status to narcotic agent; Z88.8 Allergy status to other drugs, medicaments and biological substances; Z98.1 Arthrodesis status
CPT/HCPCS: 76000; G0378; J0690; J2001; J2405; J2704; J3010; J3370

== ENCOUNTER 2020-07-07 10:04 | Outpatient (CLI) | payer MEDICARE ==
--- NOTE | 2020-07-07 10:31 | RAD ---
XR Lumbar Spine 2 Or 3 View History: Lumbar pain. Follow-up surgery Comparison: Radiograph November 2019 Findings: Right posterior spinal fusion hardware with transpedicular screws and interconnecting malik a t L4/L5. 13 mm dextroscoliosis measured from the inferior L2 endplate and the inferior L4 endplate. Severe left-sided L3/L4 degenerative disc space height loss with large osteophyte formation. Minimal 2 mm L4-5 anterolisthesis is similar. Advanced degenerative change L5-S1 disc space. Impression: Mild progressive dextro scoliosis and left-sided L3-4 degenerative disc space height loss .
--- NOTE | 2020-07-07 10:32 | RAD ---
XR Hip Lt 2-3 View INDICATION: Left hip pain COMPARISON: None FINDINGS: Bones: No acute osseous abnormality. Bone mineralization appears within normal limits. Hip joint: There is mild left hip osteoarthrosis. SI joints and symphysis pubis: There is mild degenerative change of the left SI joint. Intrapelvic contents: There is a calcified fibroid within the central pelvis. There are multiple phle boliths within the left lower hemipelvis. Surrounding soft tissues: Radiographically normal. IMPRESSION: 1. Mild left hip osteoarthrosis. 2. Fibroid uterus.
== END 2020-07-07 10:05 | disposition home or self-care (01) ==
LOC: TBSIIMAG 10:04
PROVIDERS: ATTEND Neurological Surgery
DX: M25.552 Pain in left hip (principal); D25.9 Leiomyoma of uterus, unspecified; M16.12 Unilateral primary osteoarthritis, left hip; M51.36 Other intervertebral disc degeneration, lumbar region; M41.9 Scoliosis, unspecified
CPT/HCPCS: 72100

== ENCOUNTER 2025-06-20 14:55 | Inpatient (IN) | payer MEDICARE ==
[~2025-06-20 14:55] MED LIST: Iopamidol-370 76% 500 ML MDV (1 ML CHARGE) ONE
[2025-06-20 16:12] LABS: #Basophils 0.06 10x3/uL (0.0-0.2); #Eosinophils 0.17 10x3/uL (0.0-0.7); #Monocytes 0.57 10x3/uL (0.11-0.59); #Neutrophils 4.80 10x3/uL (1.40-6.50); %Basophils 0.8 % (0.0-1.0); %Eosinophils 2.2 % (0.0-10.0); %Lymphocytes 28.1 % (21.0-51.0); %Monocytes 7.3 % (0.0-10.0); %Neutrophils 61.3 % (42.0-75.0); Hematocrit 41.2 % (36.0-47.0); Hemoglobin 13.0 g/dL (12.0-16.0); Mean Corpuscular Hemoglobin 30.3 pg (27.0-31.0); Mean Corpuscular Volume 96.0 fL (78.0-98.0); Platelet Count 233 10x3/uL (130-400); Red Blood Cell (RBC) Count 4.29 mill/uL (4.20-5.40); White Blood Cell (WBC) Count 7.82 10x3/uL (4.8-10.8)
[2025-06-20 16:21] LABS: Bacteria/HPF None Seen HPF (None Seen); CAUTI Indications for Culture Alt mental st,lethar; Glucose, Urine (Dipstick) Normal (Negative); Leukocyte Negative Leu/uL (Negative); Protein, Urine (Dipstick) Negative (Neg-Trace); RBC/HPF None Seen HPF (0-3); Specific Gravity, Urine 1.008 (1.002-1.036); WBC/HPF None Seen HPF (0-3)
[2025-06-20 16:22] LABS: Urine Culture Reflex No No
[2025-06-20 16:25] LABS: Cocaine Metabolite Screen Negative (Negative); THC/Cannabinoid Screen Negative (Negative); Tricyclic Screen Negative (Negative)
[2025-06-20 16:29] LABS: ALT (SGPT) 13 U/L (Less than 34); AST (SGOT) 16 U/L (11-34); Acetaminophen Less than 10 mcg/mL (Less than 10); Albumin 3.9 g/dL (3.1-4.5); Alkaline Phosphatase 53 U/L (40-110); Anion Gap 14 mmol/L (10-20); BUN (Urea Nitrogen) 16 mg/dL (9.8-20.1); Bilirubin, Total 0.3 mg/dL (0.3-1.2); Calc. Creatinine Clearance 0 mL/min (70-130); Calcium 9.5 mg/dL (7.8-10.44); Carbon Dioxide 26 mmol/L (23-31); Chloride 104 mmol/L (98-107); Globulin 3.6 g/dL (2.4-3.5); Glucose 135 mg/dL (83-110); Potassium 4.0 mmol/L (3.5-5.1); Salicylate Less than 8.0 mg/dL (Less than 8.0); Sodium 140 mmol/L (136-145)
[2025-06-20 16:32] LABS: INR-International Normal Ratio 0.9; Prothrombin Time 12.7 sec (12.0-14.7)
[2025-06-20 16:33] LABS: PTT 31.2 sec (22.9-36.1)
[2025-06-20] MEDS ORDERED: Aspirin Chewable 81 MG TAB ONE (17:02)
[2025-06-20] MEDS ORDERED: Acetaminophen 325 MG TAB PO PRN (18:11)
[2025-06-20] MEDS ORDERED: Ondansetron PF 4 MG/2 ML Vial IVP PRN (18:11)
[2025-06-20] MEDS ORDERED: Guaifenesin DM 100-10/5 ML UDCUP PO PRN (18:11)
[2025-06-20] MEDS ORDERED: Electrolyte Replacement Protocol 1 EACH FS SCH (18:15)
[2025-06-20] MEDS ORDERED: Dextrose 50% Abboject 50 ML SYRINGE SLOW IVP PRN (18:25)
[2025-06-20] MEDS ORDERED: Glucagon 1 MG/ML KIT IM PRN (18:25)
[2025-06-20 19:46] VITALS: BMI 20.7
[2025-06-20] MEDS: Lisinopril 5 MG TAB PO SCH (21:47)
[2025-06-20] MEDS: Gabapentin 100 MG CAP PO SCH (21:47)
[2025-06-21 04:49] LABS: #Basophils 0.06 10x3/uL (0.0-0.2); #Eosinophils 0.28 10x3/uL (0.0-0.7); #Monocytes 0.61 10x3/uL (0.11-0.59); #Neutrophils 5.09 10x3/uL (1.40-6.50); %Basophils 0.7 % (0.0-1.0); %Eosinophils 3.5 % (0.0-10.0); %Lymphocytes 24.9 % (21.0-51.0); %Monocytes 7.6 % (0.0-10.0); %Neutrophils 63.1 % (42.0-75.0); Hematocrit 41.3 % (36.0-47.0); Hemoglobin 13.2 g/dL (12.0-16.0); Mean Corpuscular Hemoglobin 31.1 pg (27.0-31.0); Mean Corpuscular Volume 97.4 fL (78.0-98.0); Platelet Count 182 10x3/uL (130-400); Red Blood Cell (RBC) Count 4.24 mill/uL (4.20-5.40); White Blood Cell (WBC) Count 8.07 10x3/uL (4.8-10.8)
[2025-06-21 05:05] LABS: ALT (SGPT) 14 U/L (Less than 34); AST (SGOT) 22 U/L (11-34); Albumin 3.7 g/dL (3.1-4.5); Alkaline Phosphatase 43 U/L (40-110); Anion Gap 15 mmol/L (10-20); BUN (Urea Nitrogen) 13 mg/dL (9.8-20.1); Bilirubin, Total 0.5 mg/dL (0.3-1.2); Calc. Creatinine Clearance 50 mL/min (70-130); Calcium 9.2 mg/dL (7.8-10.44); Carbon Dioxide 22 mmol/L (23-31); Chloride 106 mmol/L (98-107); Globulin 3.3 g/dL (2.4-3.5); Glucose 99 mg/dL (83-110); Potassium 4.2 mmol/L (3.5-5.1); Sodium 139 mmol/L (136-145)
[2025-06-21] MEDS: Aspirin 81 mg Enteric Coated Tablet PO SCH (12:25)
[2025-06-21 14:56] VITALS: BMI 20.7
[2025-06-22 04:47] LABS: Cardiac Risk 4.7 (Less than 4.5); Cholesterol 188.0 mg/dl (< 200 Desired); HDL Cholesterol 40.0 mg/dL (>60 Neg Risk); LDL Cholesterol, Calculated 125.0 mg/dL; Triglycerides 116.0 mg/dL (Less than 150)
[2025-06-22] MEDS: Aspirin 81 mg Enteric Coated Tablet PO SCH (09:45)
[2025-06-24 23:09] VITALS: BP 112/55; TEMP 97.9
== END 2025-06-25 01:09 | disposition swing bed (61) | DRG 66 ==
LOC: ERS 14:55 → 2SE 17:49
PROVIDERS: ADMIT Internal Medicine; ATTEND Internal Medicine
DX: I63.9 Cerebral infarction, unspecified (principal); R25.1 Tremor, unspecified; E11.9 Type 2 diabetes mellitus without complications; I10 Essential (primary) hypertension; E03.9 Hypothyroidism, unspecified; H35.30 Unspecified macular degeneration; I48.0 Paroxysmal atrial fibrillation; F41.9 Anxiety disorder, unspecified; E78.00 Pure hypercholesterolemia, unspecified; R27.8 Other lack of coordination; R29.703 NIHSS score 3; Z98.1 Arthrodesis status; Z79.899 Other long term (current) drug therapy; Z88.8 Allergy status to other drugs, medicaments and biological substances; Z88.2 Allergy status to sulfonamides; Z88.5 Allergy status to narcotic agent; Z88.1 Allergy status to other antibiotic agents
CPT/HCPCS: 36415; 36416; 70496; 70498; 70551; 71045; 80053; 80061; 80306; 80307; 81001; 83036; 85025; 85610; 85730; 93005; 93880; 94760; Q9967